=== PATIENT | male | born 1990 | race Caucasian/White ===

== ENCOUNTER 2022-06-21 05:22 | Emergency (ER) | payer OTHER ==
[2022-06-21 05:37] VITALS: BP 138/71; PULSE 74; RESP 15; TEMP 98.1
[2022-06-21] MEDS ORDERED: ONDANSETRON 4 MG/2 ML VIAL IVP STA (06:00)
[2022-06-21] MEDS ORDERED: KETOROLAC 15 MG/ML 1 ML VIAL IVP STA (06:00)
[2022-06-21] MEDS ORDERED: ORPHENADRINE 30 MG/ML 2 ML VIAL IVP STA (06:01)
--- NOTE | 2022-06-21 06:22 | ED ---
Recheck HPI - General Chief Complaint: Recheck/Abnormal Lab/Rx Stated Complaint: medication reaction Time Seen by Provider: 06/21/22 05:54 Source: EMS Mode of arrival: EMS Limitations: no limitations - History of Present Illness Initial Comments: This is a 32-year-old male who presents to the emergency department for nausea, vomiting, and lower back pain. He was started on Requip last night for restless leg syndrome, and is unsure if this is related. The pain is primarily in the right mid and lower back. He does note a problem with bulging disks in the past. However, this feels worse and it has not been a problem for him in several years. He has diffuse abdominal pain related to all of the nausea and vomiting. Also has a headache. Denies any history of kidney stones or urinary symptoms. Denies any fevers, chills, sore throat, cough, dyspnea, chest pain, palpitations, or diarrhea. - Related Data Home Medications Medication Instructions Recorded Confirmed Metoprolol Tartrate [Lopressor] 100 mg PO DAILY 05/11/20 05/11/20 clonazePAM [KlonoPIN] 0.5 mg PO HS 05/11/20 05/11/20 lisinopriL [Zestril] 20 mg PO DAILY 05/11/20 05/11/20 Allergies Allergy/AdvReac Type Severity Reaction Status Date / Time No Known Allergies Allergy Verified 06/21/22 05:35 Review of Systems ROS Statement: Those systems with pertinent positive or pertinent negative responses have been documented in the HPI. ROS Other: All systems not noted in ROS Statement are negative. Past Medical History Past Medical History: GERD/Reflux, Hypertension Additional Past Medical History / Comment(s): HAD STAGE 4 REFLUX AT AGE 16. SEVERE ANXIETY History of Any Multi-Drug Resistant Organisms: None Reported Additional Past Surgical History / Comment(s): EGD Past Anesthesia/Blood Transfusion Reactions: No Reported Reaction Past Psychological History: Anxiety Smoking Status: Never smoker Past Alcohol Use History: None Reported Past Drug Use History: None Reported - Past Family History Father Family Medical History: Deep Vein Thrombosis (DVT) Mother Family Medical History: Deep Vein Thrombosis (DVT) General Exam Limitations: no limitations Course Vital Signs 06/21/22 05:35 Temperature 98.1 F Pulse Rate 74 Respiratory 15 Rate Blood Pressure 138/71 O2 Sat by Pulse 100 Oximetry Disposition Referrals: Cheryl Cano NPC [Primary Care Provider] - 1-2 days
--- NOTE | 2022-06-21 06:22 | ED ---
Nausea/Vomiting/Diarrhea HPI - General Chief complaint: Recheck/Abnormal Lab/Rx Stated complaint: medication reaction Time Seen by Provider: 06/21/22 05:54 Source: patient, EMS, RN notes reviewed Mode of arrival: EMS Limitations: no limitations - History of Present Illness Initial comments: This is a 32-year-old male who presents to the emergency department for nausea, vomiting, and lower back pain. He was started on Requip last night for restless leg syndrome, and is unsure if this is related. The pain is primarily in the right mid and lower back. He does note a problem with bulging disks in the past. However, this feels worse and it has not been a problem for him in several years. He has diffuse abdominal pain related to all of the nausea and vomiting. Also has a headache. Denies any history of kidney stones or urinary symptoms. Prior to the Requip, he took 400 mg of gabapentin before bed, which he states worked great for the restless legs. He is unsure why this was discontinued. Denies any fevers, chills, sore throat, cough, dyspnea, chest pain, palpitations, or diarrhea. MD complaint: nausea, vomiting, abdominal pain Associated Abdominal Pain: Yes Location: diffuse - Related Data Home Medications Medication Instructions Recorded Confirmed Metoprolol Tartrate [Lopressor] 100 mg PO DAILY 05/11/20 05/11/20 clonazePAM [KlonoPIN] 0.5 mg PO HS 05/11/20 05/11/20 lisinopriL [Zestril] 20 mg PO DAILY 05/11/20 05/11/20 Previous Rx's Medication Instructions Recorded Gabapentin [Neurontin] 400 mg PO HS PRN #7 cap 06/21/22 Ondansetron Odt [Zofran Odt] 4 mg PO Q8HR PRN #15 tab 06/21/22 Allergies Allergy/AdvReac Type Severity Reaction Status Date / Time No Known Allergies Allergy Verified 06/21/22 05:35 Review of Systems ROS Statement: Those systems with pertinent positive or pertinent negative responses have been documented in the HPI. ROS Other: All systems not noted in ROS Statement are negative. Past Medical History Past Medical History: GERD/Reflux, Hypertension Additional Past Medical History / Comment(s): HAD STAGE 4 REFLUX AT AGE 16. SEVERE ANXIETY History of Any Multi-Drug Resistant Organisms: None Reported Additional Past Surgical History / Comment(s): EGD Past Anesthesia/Blood Transfusion Reactions: No Reported Reaction Past Psychological History: Anxiety Smoking Status: Never smoker Past Alcohol Use History: None Reported Past Drug Use History: None Reported - Past Family History Father Family Medical History: Deep Vein Thrombosis (DVT) Mother Family Medical History: Deep Vein Thrombosis (DVT) General Exam Limitations: no limitations General appearance: alert, in distress Head exam: Present: atraumatic, normocephalic, normal inspection Respiratory exam: Present: normal lung sounds bilaterally. Absent: respiratory distress, wheezes, rales, rhonchi, stridor Cardiovascular Exam: Present: regular rate GI/Abdominal exam: Present: soft, tenderness (Diffuse), normal bowel sounds. Absent: distended, guarding, rebound, rigid Back exam: Present: CVA tenderness (R). Absent: CVA tenderness (L) Neurological exam: Present: alert, oriented X3, CN II-XII intact Psychiatric exam: Present: normal affect, normal mood Skin exam: Present: warm, dry, intact, normal color. Absent: rash Course Vital Signs 06/21/22 05:35 Temperature 98.1 F Pulse Rate 74 Respiratory 15 Rate Blood Pressure 138/71 O2 Sat by Pulse 100 Oximetry Medical Decision Making - Medical Decision Making This is a 32-year-old male who presents to the emergency department for nausea, vomiting, and back pain. Lab work was nonactionable. Urinalysis is negative for any signs of infection. Computed tomography scan of the abdomen and pelvis obtained, revealing moderate degenerative disc disease with disc bulging of the lumbosacral area of the spine. It did not identify any signs of a ureteral or renal calculus. His symptoms were effectively managed in the emergency department, however he did require quite a few medications, including a migraine cocktail for the headache. Valium and Norflex were ineffective for the RLS and he was subsequently quickly given a dose of the gabapentin. Advised the patient that I can give him 7 tablets of the gabapentin, however because this is considered a controlled substance, I am unable to provide him with any more than this. He will need to follow up with his primary care provider to discuss continuing this as opposed to the Requip for his symptoms. Recommended he avoid the Requip in the meantime in the event it is contributing to his symptoms. Prescription for Zofran provided in addition to the gabapentin for any additional nausea and vomiting. Return precautions reviewed in depth, the patient is instructed to return to the emergency department with any new, worsening, or concerning symptoms. Patient verbalized understanding. This case was discussed in detail with the attending ED physician. Presentation, findings, and treatment plan discussed in detail as well. - Lab Data Result diagrams: 06/21/22 06:05 06/21/22 06:05 Lab Results 06/21/22 06/21/22 06/21/22 Range/Units 06:05 06:05 06:44 WBC 9.6 (3.8-10.6) k/uL RBC 4.15 L (4.30-5.90) m/uL Hgb 13.3 (13.0-17.5) gm/dL Hct 36.6 L (39.0-53.0) % MCV 88.3 (80.0-100.0) fL MCH 32.0 (25.0-35.0) pg MCHC 36.2 (31.0-37.0) g/dL RDW 12.0 (11.5-15.5) % Plt Count 347 (150-450) k/uL MPV 7.0 Neutrophils % 82 % Lymphocytes % 13 % Monocytes % 3 % Eosinophils % 1 % Basophils % 0 % Neutrophils # 7.9 H (1.3-7.7) k/uL Lymphocytes # 1.3 (1.0-4.8) k/uL Monocytes # 0.3 (0-1.0) k/uL Eosinophils # 0.1 (0-0.7) k/uL Basophils # 0.0 (0-0.2) k/uL Sodium 139 (137-145) mmol/L Potassium 4.3 (3.5-5.1) mmol/L Chloride 104 (98-107) mmol/L Carbon Dioxide 26 (22-30) mmol/L Anion Gap 9 mmol/L BUN 10 (9-20) mg/dL Creatinine 0.66 (0.66-1.25) mg/dL Est GFR (CKD-EPI)AfAm >90 (>60 ml/min/1.73 sqM) Est GFR (CKD-EPI)NonAf >90 (>60 ml/min/1.73 sqM) Glucose 117 H (74-99) mg/dL Calcium 9.5 (8.4-10.2) mg/dL Total Bilirubin 0.6 (0.2-1.3) mg/dL AST 25 (17-59) U/L ALT 26 (4-49) U/L Alkaline Phosphatase 65 (38-126) U/L Total Protein 7.1 (6.3-8.2) g/dL Albumin 4.7 (3.5-5.0) g/dL Amylase 59 (30-110) U/L Lipase 64 (23-300) U/L Urine Color Urine Appearance (Clear) Urine pH (5.0-8.0) Ur Specific [place] (1.001-1.035) Urine Protein (Negative) Urine Glucose (UA) (Negative) Urine Ketones (Negative) Urine Blood (Negative) Urine Nitrite (Negative) Urine Bilirubin (Negative) Urine Urobilinogen (<2.0) mg/dL Ur Leukocyte Esterase (Negative) Coronavirus (PCR) (Not Detectd) Influenza Type A RNA Not Detected (Not Detectd) Influenza Type B (PCR) Not Detected (Not Detectd) 06/21/22 06/21/22 Range/Units 06:44 08:57 WBC (3.8-10.6) k/uL RBC (4.30-5.90) m/uL Hgb (13.0-17.5) gm/dL Hct (39.0-53.0) % MCV (80.0-100.0) fL MCH (25.0-35.0) pg MCHC (31.0-37.0) g/dL RDW (11.5-15.5) % Plt Count (150-450) k/uL MPV Neutrophils % % Lymphocytes % % Monocytes % % Eosinophils % % Basophils % % Neutrophils # (1.3-7.7) k/uL Lymphocytes # (1.0-4.8) k/uL Monocytes # (0-1.0) k/uL Eosinophils # (0-0.7) k/uL Basophils # (0-0.2) k/uL Sodium (137-145) mmol/L Potassium (3.5-5.1) mmol/L Chloride (98-107) mmol/L Carbon Dioxide (22-30) mmol/L Anion Gap mmol/L BUN (9-20) mg/dL Creatinine (0.66-1.25) mg/dL Est GFR (CKD-EPI)AfAm (>60 ml/min/1.73 sqM) Est GFR (CKD-EPI)NonAf (>60 ml/min/1.73 sqM) Glucose (74-99) mg/dL Calcium (8.4-10.2) mg/dL Total Bilirubin (0.2-1.3) mg/dL AST (17-59) U/L ALT (4-49) U/L Alkaline Phosphatase (38-126) U/L Total Protein (6.3-8.2) g/dL Albumin (3.5-5.0) g/dL Amylase (30-110) U/L Lipase (23-300) U/L Urine Color Yellow Urine Appearance Clear (Clear) Urine pH 6.5 (5.0-8.0) Ur Specific [place] 1.014 (1.001-1.035) Urine Protein Negative (Negative) Urine Glucose (UA) Negative (Negative) Urine Ketones Negative (Negative) Urine Blood Negative (Negative) Urine Nitrite Negative (Negative) Urine Bilirubin Negative (Negative) Urine Urobilinogen <2.0 (<2.0) mg/dL Ur Leukocyte Esterase Negative (Negative) Coronavirus (PCR) Not Detected (Not Detectd) Influenza Type A RNA (Not Detectd) Influenza Type B (PCR) (Not Detectd) - Radiology Data Radiology results: report reviewed, image reviewed Disposition Clinical Impression: Nausea & vomiting Disposition: HOME SELF-CARE Instructions (If sedation given, give patient instructions): Restless Legs Syndrome (ED) Additional Instructions: Return to the emergency department with any new, worsening, or concerning symptoms. Start taking the gabapentin before bed each night. Discuss continuing this as opposed to the Requip with your primary care provider. Stop taking the Requip and see if symptoms improve. The Zofran can be taken up to every 8 hours as needed for nausea and vomiting. Follow up with your primary care provider in 1-2 days. Prescriptions: Gabapentin [Neurontin] 400 mg PO HS PRN #7 cap PRN Reason: See Comments Ondansetron Odt [Zofran Odt] 4 mg PO Q8HR PRN #15 tab PRN Reason: Nausea And Vomiting Is patient prescribed a controlled substance at d/c from ED?: Yes When asked, does pt state using other controlled substances?: Yes Referrals: Cheryl Cano NPC [Primary Care Provider] - 1-2 days
[2022-06-21 06:27] LABS: Basophils % (A) 0 %; Eosinophils # (A) 0.1 k/uL (0-0.7); Eosinophils % (A) 1 %; HCT 36.6 % (39.0-53.0); HGB 13.3 gm/dL (13.0-17.5); Lymphocytes # (A) 1.3 k/uL (1.0-4.8); Lymphocytes % (A) 13 %; MCHC 36.2 g/dL (31.0-37.0); MCV 88.3 fL (80.0-100.0); Monocytes # (A) 0.3 k/uL (0-1.0); Monocytes % (A) 3 %; Neutrophils # (A) 7.9 k/uL (1.3-7.7); Neutrophils % (A) 82 %; Platelet Count 347 k/uL (150-450); RBC 4.15 m/uL (4.30-5.90); WBC 9.6 k/uL (3.8-10.6)
[2022-06-21 06:47] LABS: ALT 26 U/L (4-49); AST 25 U/L (17-59); African American GFR (CKD) >90 (>60 ml/min/1.73 sqM); Albumin 4.7 g/dL (3.5-5.0); Alkaline Phosphatase 65 U/L (38-126); Amylase 59 U/L (30-110); Anion Gap 9 mmol/L; Blood Urea Nitrogen 10 mg/dL (9-20); Calcium 9.5 mg/dL (8.4-10.2); Carbon Dioxide 26 mmol/L (22-30); Chloride 104 mmol/L (98-107); Glucose 117 mg/dL (74-99); Lipase 64 U/L (23-300); Non-African American GFR(CKD) >90 (>60 ml/min/1.73 sqM); Potassium 4.3 mmol/L (3.5-5.1); Sodium 139 mmol/L (137-145); Total Bilirubin 0.6 mg/dL (0.2-1.3); Total Protein 7.1 g/dL (6.3-8.2)
[2022-06-21] MEDS ORDERED: METOCLOPRAMIDE 5 MG/ML 2 ML VIAL IVP STA (07:41)
[2022-06-21] MEDS ORDERED: diphenhydrAMINE 50 MG/ML 1 ML VIAL IVP STA (07:41)
[2022-06-21] MEDS ORDERED: SODIUM CHLORIDE 0.9% 500 ML 500 ML IV STA (07:41)
[2022-06-21] MEDS ORDERED: DEXAMETHASONE SOD PHOSPHATE 10 MG/ML 1 ML VIAL IV STA (07:41)
--- NOTE | 2022-06-21 07:56 | CT ---
EXAMINATION TYPE: CT abdomen pelvis wo con DATE OF EXAM: 06/21/2022 COMPARISON: None HISTORY: 32-year-old male Rt flank pain CT DLP: 591 mGycm. Automated exposure control for dose reduction was used. TECHNIQUE: Contiguous axial scanning of the abdomen and pelvis without IV contrast. Coronal and sagit onofre reconstructions performed. FINDINGS: Heart normal size without pericardial effusion. Lung bases clear without pleural effusion. Liver borderline in size at 17.3 cm. Otherwise, noncontrast appearance of the liver, gallbladder, adr enal glands, kidneys, spleen, and pancreas within normal limits. No ureteral stone, nephrolithiasis, or hydronephrosis is seen. No dilated small bowel, free fluid, free air. No mesenteric or retroperitoneal lymphadenopathy. Normal appendix. Mild stool burden. No pericolonic inflammatory change. Bladder nondistended. Prostate gland measures 4.1 cm wide. Small pelvic phleboliths. No abnormal flui d collection in the pelvis or pelvic lymphadenopathy. Bones: Transitional lumbosacral segment is noted as a sacralized L5. Moderate degenerative disc disea se above at L4-L5. Disc bulges at both L3-L4 (resulting in mild spinal canal stenosis) and L4-L5. Hyp ertrophic facet arthropathy in the lower lumbar spine. IMPRESSION: 1. No nephrolithiasis or hydronephrosis. Normal appendix. No acute inflammatory process identified o n this noncontrast study. 2. Transitional lumbosacral segment with moderate degenerative disc disease above at L4-L5. Disc bul ge at L3-L4 results in a mild spinal canal stenosis.
[2022-06-21] MEDS ORDERED: HYDROmorphone 0.5 MG/0.5 ML SYRINGE IVP STA (08:46)
[2022-06-21] MEDS ORDERED: GABAPENTIN 400 MG CAP PO STA (08:46)
[2022-06-21 09:06] LABS: Appearance,Urine Clear (Clear); Bilirubin,Urine Negative (Negative); Blood,Urine Negative (Negative); Color,Urine Yellow; Glucose,Urine (UA) Negative (Negative); Ketones,Urine Negative (Negative); Leukocyte Esterase,Urine Negative (Negative); Nitrite,Urine Negative (Negative); PH, Urine 6.5 (5.0-8.0); Protein,Urine Negative (Negative); Specific Gravity,Urine 1.014 (1.001-1.035); Urobilinogen,Urine <2.0 mg/dL (<2.0)
== END 2022-06-21 09:22 | disposition home or self-care (01) ==
LOC: EC 05:22
DX: R11.2 Nausea with vomiting, unspecified (principal); K21.9 Gastro-esophageal reflux disease without esophagitis; I10 Essential (primary) hypertension; F41.9 Anxiety disorder, unspecified; Z79.899 Other long term (current) drug therapy; Z20.822 Contact with and (suspected) exposure to COVID-19
CPT/HCPCS: 36415; 80053; 82150; 83690; 85025; 81003; 87502; 87635; 74176; 99284; 96374; 96375 ×8; J1200; J1100; J2360; J2765; J3360; J2405; J1885; J1170

== ENCOUNTER → 2022-08-14 | Outpatient (CLI) | payer OTHER ==
--- NOTE | 2022-08-14 11:20 | CT ---
EXAMINATION TYPE: CT angio chest CT DLP: 312.1 mGycm, Automated exposure control for dose reduction was used. DATE OF EXAM: 08/14/2022 11:08 AM COMPARISON: CT abdomen and pelvis 06/21/2022. CLINICAL INDICATION:Male, 32 years old with history of I26.99 PE I34.0 Mitral valve insufficiency; Fo llow up for PE. TECHNIQUE/CONTRAST: CTA scan of the thorax is performed with IV Contrast, patient injected with 72ml mL of Isovue 370, pu lmonary embolism protocol. MIP images are created and reviewed. FINDINGS: Pulmonary Artery: There is no evidence for a filling defect within the pulmonary vasculature to sugge st acute pulmonary embolism. The pulmonary artery is of normal size. Reflux of contrast into the IVC and hepatic veins. Lungs/Pleura: No evidence of focal consolidation, pleural effusion or pneumothorax. No suspicious pul monary nodules or masses. Airway: Large airways are patent. Heart: Heart is within normal limits for overall size.. No pericardial effusion. Vasculature: No evidence of aortic aneurysm. Mediastinum: No gross evidence of adenopathy. Musculoskeletal: No acute osseous abnormalities Soft Tissues: Unremarkable. Lower neck: No significant findings. Upper Abdomen: No significant findings.. IMPRESSION: No evidence of pulmonary embolism or acute thoracic process.
== END | disposition home or self-care (01) ==
LOC: RADCTMAIN 10:40
PROVIDERS: ATTEND Family Medicine
DX: I07.1 Rheumatic tricuspid insufficiency (principal); I34.0 Nonrheumatic mitral (valve) insufficiency
CPT/HCPCS: 71275; Q9967

== ENCOUNTER 2024-11-20 10:40 | Emergency (ER) | payer OTHER ==
[2024-11-20 10:48] VITALS: TEMP 98
--- NOTE | 2024-11-20 11:30 | ED ---
GI Bleed HPI - General Chief complaint: GI Bleed Stated complaint: abd pain, vomiting Time Seen by Provider: 11/20/24 11:27 Source: patient, EMS, RN notes reviewed Mode of arrival: EMS Limitations: no limitations - History of Present Illness Initial comments: 34-year-old male presenting for nausea/vomiting/diarrhea x 2 days with associated epigastric pain. States symptoms started suddenly around 4 PM on Saturday and have been persistent since. States the vomit appears to be coffee-ground emesis and smells like feces. Reports stools are black and waller. Reports symptoms occur approximately every 20 minutes. States he has a history of a perforated ulcer due to GERD. Denies any alcohol use. No other health conditions. He is unable to tolerate orals. - Related Data Home Medications Medication Instructions Recorded Confirmed lisinopriL [Zestril] 20 mg PO DAILY 05/11/20 11/20/24 Buprenorphine/Naloxone 8Mg/2Mg 0.5 film SL BID 11/20/24 11/20/24 [Suboxone 8-2Mg Film] Metoprolol Succinate (ER) [Toprol 100 mg PO DAILY 11/20/24 11/20/24 Xl] Previous Rx's Medication Instructions Recorded Ondansetron Odt [Zofran Odt] 4 mg PO Q8HR PRN #10 tab 11/20/24 Allergies Allergy/AdvReac Type Severity Reaction Status Date / Time No Known Allergies Allergy Verified 11/20/24 11:12 Review of Systems ROS Statement: Those systems with pertinent positive or pertinent negative responses have been documented in the HPI. ROS Other: All systems not noted in ROS Statement are negative. Past Medical History Past Medical History: GERD/Reflux, Hypertension Additional Past Medical History / Comment(s): HAD STAGE 4 REFLUX AT AGE 16. SEVERE ANXIETY History of Any Multi-Drug Resistant Organisms: None Reported Additional Past Surgical History / Comment(s): EGD Past Anesthesia/Blood Transfusion Reactions: No Reported Reaction Past Psychological History: Anxiety Smoking Status: Vaper Past Alcohol Use History: None Reported Past Drug Use History: None Reported - Past Family History Father Family Medical History: Deep Vein Thrombosis (DVT) Mother Family Medical History: Deep Vein Thrombosis (DVT) General Exam Limitations: no limitations General appearance: alert, in no apparent distress Head exam: Present: atraumatic, normocephalic, normal inspection Eye exam: Present: normal appearance, PERRL, EOMI. Absent: scleral icterus, conjunctival injection, periorbital swelling ENT exam: Present: normal exam, mucous membranes moist Respiratory exam: Present: normal lung sounds bilaterally. Absent: respiratory distress, wheezes, rales, rhonchi, stridor Cardiovascular Exam: Present: regular rate, normal rhythm, normal heart sounds. Absent: systolic murmur, diastolic murmur, rubs, gallop, clicks GI/Abdominal exam: Present: soft, normal bowel sounds. Absent: distended, tenderness, guarding, rebound, rigid Rectal exam: Present: normal inspection (No gross black or bloody stool during examination. Exam chaperoned by [facility]). Absent: hemorrhoids Neurological exam: Present: alert, oriented X3 Psychiatric exam: Present: normal affect, normal mood Skin exam: Present: warm, dry, intact, normal color. Absent: rash Course Vital Signs 11/20/24 11/20/24 11/20/24 10:43 13:00 13:58 Temperature 98.0 F Pulse Rate 84 82 87 Respiratory 20 16 18 Rate Blood Pressure 139/89 124/79 128/80 O2 Sat by Pulse 100 98 98 Oximetry Medical Decision Making - Medical Decision Making Was pt. sent in by a medical professional or institution (, PA, RN NEUROSURGICAL, urgent care, hospital, or [facility]...) When possible be specific @ -No Did you speak to anyone other than the patient for history (EMS, parent, family, police, friend...)? What history was obtained from this source @ -No Did you review nursing and triage notes (agree or disagree)? Why? @ -I reviewed and agree with nursing and triage notes Were old charts reviewed (outside hosp., previous admission, EMS record, old EKG, old radiological studies, urgent care reports/EKG's, [facility] records)? Report findings @ -No old charts were reviewed Differential Diagnosis (chest pain, altered mental status, abdominal pain women, abdominal pain men, vaginal bleeding, weakness, fever, dyspnea, syncope, headache, dizziness, GI bleed, back pain, seizure, CVA, palpatations, mental health, musculoskeletal)? @ -Differential GI Bleed: Esophageal varices, aortoenteric fistula, Divine-Menard, gastritis, peptic ulcer disease, diverticulosis, inflammatory bowel disease, hemorrhoids, fissure, colitis, malignancy, Meckel's diverticulum, this is not meant to be an all- inclusive list. EKG interpreted by me (3pts min.). @ -As above X-rays interpreted by me (1pt min.). @ -None done CT interpreted by me (1pt min.). @ -CT abdomen pelvis reveals fluid in the colon is abnormal finding and could reflect products of diarrhea or mild uncomplicated colitis, no acute findings U/S interpreted by me (1pt. min.). @ -None done What testing was considered but not performed or refused? (CT, X-rays, U/S, labs)? Why? @ -None What meds were considered but not given or refused? Why? @ -None Did you discuss the management of the patient with other professionals ( professionals i.e. , PA, RN NEUROSURGICAL, lab, RT, psych nurse, social service technician, replanter, teacher, biosecurity officer, case making machine operator)? Give summary @ -No Was smoking cessation discussed for >3mins.? @ -No Was critical care preformed (if so, how long)? @ -No Were there social determinants of health that impacted care today? How? (Homelessness, low income, unemployed, alcoholism, drug addiction, transportation, low edu. Level, literacy, decrease access to med. care, group home, rehab)? @ -No Was there de-escalation of care discussed even if they declined (Discuss DNR or withdrawal of care, Hospice)? DNR status @ -No What co-morbidities impacted this encounter? (DM, HTN, Smoking, COPD, CAD, Cancer, CVA, ARF, Chemo, Hep., AIDS, mental health diagnosis, sleep apnea, morbid obesity)? @ -None Was patient admitted / discharged? Hospital course, mention meds given and route, prescriptions, significant lab abnormalities, going to OR and other pertinent info. @ - discharge. 34-year-old male presenting for GI bleed. Reports nausea/vomiting/diarrhea with epigastric pain for 2 days. Reports vomit is coffee-ground and stools are black/waller. History of perforated gastric ulceration due to chronic GERD. Vital signs within acceptable limits. Abdomen soft and nonsurgical. Patient is provided with IV fluids and dose of Protonix. Patient received Zofran and analgesics via EMS. There is no gross blood present during rectal examination. Stool occult positive. Lab work largely unremarkable. White blood cell count normal at 10. Hemoglobin stable at 13.6. Urinalysis reveals 1+ protein and trace blood. CT abdomen with contrast reveals fluid in the colon abnormal finding and could represent a product of diarrhea or mild uncomplicated colitis, no acute finding. Results were discussed with patient. I recommend patient is admitted to observation for serial hemoglobin monitoring as there is suspicion for upper GI bleed and patient has history of perforated ulceration. After discussing my concerns with patient and family, patient decides that he prefers to be discharged with GI follow-up and return precautions. Strict return precautions discussed with patient in detail. Advised to continue omeprazole at home. Case was discussed with my ED attending Dr. Guy. Undiagnosed new problem with uncertain prognosis? @ -No Drug Therapy requiring intensive monitoring for toxicity (Heparin, Nitro, Insuli n, Cardizem)? @ -No Were any procedures done? @ -No Diagnosis/symptom? @ -Upper GI bleed Acute, or Chronic, or Acute on Chronic? @ -Acute Uncomplicated (without systemic symptoms) or Complicated (systemic symptoms)? @ -Complicated Side effects of treatment? @ -No Exacerbation, Progression, or Severe Exacerbation? @ -No Poses a threat to life or bodily function? How? (Chest pain, USA, ND, pneumonia, PE, COPD, DKA, ARF, appy, cholecystitis, CVA, Diverticulitis, Homicidal, Suicidal, threat to staff... and all critical care pts) @ -Not at this time - Lab Data Result diagrams: 11/20/24 11:35 11/20/24 11:35 Lab Results 11/20/24 11/20/24 11/20/24 Range/Units 11:35 11:35 11:35 WBC 10.0 (3.8-10.6) k/uL RBC 4.42 (4.30-5.90) m/uL Hgb 13.6 (13.0-17.5) gm/dL Hct 38.6 L (39.0-53.0) % MCV 87.5 (80.0-100.0) fL MCH 30.9 (25.0-35.0) pg MCHC 35.3 (31.0-37.0) g/dL RDW 12.4 (11.5-15.5) % Plt Count 235 (150-450) k/uL MPV 7.3 Neutrophils % 86 % Lymphocytes % 8 % Monocytes % 5 % Eosinophils % 0 % Basophils % 0 % Neutrophils # 8.6 H (1.3-7.7) k/uL Lymphocytes # 0.8 L (1.0-4.8) k/uL Monocytes # 0.5 (0-1.0) k/uL Eosinophils # 0.0 (0-0.7) k/uL Basophils # 0.0 (0-0.2) k/uL PT 12.0 (10.0-12.5) sec INR 1.1 (<1.2) APTT 24.0 (22.0-30.0) sec Sodium (137-145) mmol/L Potassium (3.5-5.1) mmol/L Chloride (98-107) mmol/L Carbon Dioxide (22-30) mmol/L Anion Gap mmol/L BUN (9-20) mg/dL Creatinine (0.66-1.25) mg/dL Est GFR (CKD-EPI)AfAm (>60 ml/min/1.73 sqM) Est GFR (CKD-EPI)NonAf (>60 ml/min/1.73 sqM) Glucose (74-99) mg/dL Plasma Lactic Acid Sadiq (0.7-2.0) mmol/L Calcium (8.4-10.2) mg/dL Total Bilirubin (0.2-1.3) mg/dL AST (17-59) U/L ALT (4-49) U/L Alkaline Phosphatase (38-126) U/L Total Protein (6.3-8.2) g/dL Albumin (3.5-5.0) g/dL Lipase (23-300) U/L Urine Color Yellow Urine Appearance Clear (Clear) Urine pH 6.5 (5.0-8.0) Ur Specific [place] 1.032 (1.001-1.035) Urine Protein 1+ H (Negative) Urine Glucose (UA) Negative (Negative) Urine Ketones Negative (Negative) Urine Blood Trace H (Negative) Urine Nitrite Negative (Negative) Urine Bilirubin Negative (Negative) Urine Urobilinogen <2.0 (<2.0) mg/dL Ur Leukocyte Esterase Negative (Negative) Urine RBC 10 H (0-5) /hpf Urine WBC 2 (0-5) /hpf Ur Squamous Epith Cells 1 (0-4) /hpf Urine Mucus Rare H (None) /hpf Stool Occult Blood (Negative) 11/20/24 11/20/24 11/20/24 Range/Units 11:35 11:35 11:58 WBC (3.8-10.6) k/uL RBC (4.30-5.90) m/uL Hgb (13.0-17.5) gm/dL Hct (39.0-53.0) % MCV (80.0-100.0) fL MCH (25.0-35.0) pg MCHC (31.0-37.0) g/dL RDW (11.5-15.5) % Plt Count (150-450) k/uL MPV Neutrophils % % Lymphocytes % % Monocytes % % Eosinophils % % Basophils % % Neutrophils # (1.3-7.7) k/uL Lymphocytes # (1.0-4.8) k/uL Monocytes # (0-1.0) k/uL Eosinophils # (0-0.7) k/uL Basophils # (0-0.2) k/uL PT (10.0-12.5) sec INR (<1.2) APTT (22.0-30.0) sec Sodium 133 L (137-145) mmol/L Potassium 3.7 (3.5-5.1) mmol/L Chloride 100 (98-107) mmol/L Carbon Dioxide 22 (22-30) mmol/L Anion Gap 11 mmol/L BUN 20 (9-20) mg/dL Creatinine 0.80 (0.66-1.25) mg/dL Est GFR (CKD-EPI)AfAm >90 (>60 ml/min/1.73 sqM) Est GFR (CKD-EPI)NonAf >90 (>60 ml/min/1.73 sqM) Glucose 123 H (74-99) mg/dL Plasma Lactic Acid Sadiq 1.4 (0.7-2.0) mmol/L Calcium 8.4 (8.4-10.2) mg/dL Total Bilirubin 1.5 H (0.2-1.3) mg/dL AST 25 (17-59) U/L ALT 18 (4-49) U/L Alkaline Phosphatase 52 (38-126) U/L Total Protein 6.5 (6.3-8.2) g/dL Albumin 3.9 (3.5-5.0) g/dL Lipase 22 L (23-300) U/L Urine Color Urine Appearance (Clear) Urine pH (5.0-8.0) Ur Specific [place] (1.001-1.035) Urine Protein (Negative) Urine Glucose (UA) (Negative) Urine Ketones (Negative) Urine Blood (Negative) Urine Nitrite (Negative) Urine Bilirubin (Negative) Urine Urobilinogen (<2.0) mg/dL Ur Leukocyte Esterase (Negative) Urine RBC (0-5) /hpf Urine WBC (0-5) /hpf Ur Squamous Epith Cells (0-4) /hpf Urine Mucus (None) /hpf Stool Occult Blood Positive (Negative) - EKG Data -: EKG Interpreted by Me EKG Comments: Normal sinus rhythm with no acute ST changes. Ventricular rate 79 bpm, GA interval 164, QRS duration 102, QT/QTc 408/443 Disposition Clinical Impression: Upper GI bleed, Colitis Disposition: HOME SELF-CARE Instructions (If sedation given, give patient instructions): Gastrointestinal Bleeding (ED) Additional Instructions: Follow-up with GI as discussed. Please return to the Emergency Department if symptoms worsen or any other concerns. Prescriptions: Ondansetron Odt [Zofran Odt] 4 mg PO Q8HR PRN #10 tab PRN Reason: Nausea Is patient prescribed a controlled substance at d/c from ED?: No Referrals: Radha Smith DO [Primary Care Provider] - 1-2 days Kylah Hdz MD [STAFF PHYSICIAN] - 1-2 days Time of Disposition: 13:48
[2024-11-20] MEDS: SODIUM CHLORIDE 0.9% 1,000 ML IV STA (11:41)
[2024-11-20] MEDS: PANTOPRAZOLE 40 MG/10 ML VIAL IVP STA (11:42)
[2024-11-20 11:49] LABS: Appearance,Urine Clear (Clear); Bilirubin,Urine Negative (Negative); Blood,Urine Trace (Negative); Color,Urine Yellow; Glucose,Urine (UA) Negative (Negative); Ketones,Urine Negative (Negative); Leukocyte Esterase,Urine Negative (Negative); Mucus,Urine Rare /hpf; Nitrite,Urine Negative (Negative); PH, Urine 6.5 (5.0-8.0); Protein,Urine 1+ (Negative); RBC,Urine 10 /hpf (0-5); Specific Gravity,Urine 1.032 (1.001-1.035); Squamous Epithelial Cell,Urine 1 /hpf (0-4); Urobilinogen,Urine <2.0 mg/dL (<2.0); WBC,Urine 2 /hpf (0-5)
[2024-11-20 11:53] LABS: ALT 18 U/L (4-49); AST 25 U/L (17-59); African American GFR (CKD) >90 (>60 ml/min/1.73 sqM); Albumin 3.9 g/dL (3.5-5.0); Alkaline Phosphatase 52 U/L (38-126); Anion Gap 11 mmol/L; Blood Urea Nitrogen 20 mg/dL (9-20); Calcium 8.4 mg/dL (8.4-10.2); Carbon Dioxide 22 mmol/L (22-30); Chloride 100 mmol/L (98-107); Glucose 123 mg/dL (74-99); Lipase 22 U/L (23-300); Non-African American GFR(CKD) >90 (>60 ml/min/1.73 sqM); Potassium 3.7 mmol/L (3.5-5.1); Sodium 133 mmol/L (137-145); Total Bilirubin 1.5 mg/dL (0.2-1.3); Total Protein 6.5 g/dL (6.3-8.2)
[2024-11-20 12:19] LABS: INR 1.1 (<1.2)
[2024-11-20 12:25] LABS: Basophils % (A) 0 %; Eosinophils % (A) 0 %; HCT 38.6 % (39.0-53.0); HGB 13.6 gm/dL (13.0-17.5); Lymphocytes # (A) 0.8 k/uL (1.0-4.8); Lymphocytes % (A) 8 %; MCH 30.9 pg (25.0-35.0); MCHC 35.3 g/dL (31.0-37.0); MCV 87.5 fL (80.0-100.0); Mean Platelet Volume 7.3; Monocytes # (A) 0.5 k/uL (0-1.0); Monocytes % (A) 5 %; Neutrophils # (A) 8.6 k/uL (1.3-7.7); Neutrophils % (A) 86 %; Platelet Count 235 k/uL (150-450); RBC 4.42 m/uL (4.30-5.90); RDW 12.4 % (11.5-15.5)
--- NOTE | 2024-11-20 12:27 | CT ---
EXAMINATION TYPE: CT abdomen pelvis w con DATE OF EXAM: 11/20/2024 COMPARISON: CT abdomen and pelvis June 21, 2022 CLINICAL INDICATION: Male, 34 years old with history of Abdominal pain, GI bleed, abd pain, TECHNIQUE: CT scan of the abdomen and pelvis is performed with IV Contrast, patient injected with 100 mL of Isov ue 300., (none if empty) Oral contrast used: without Oral Contrast (none if empty) CT DLP: 1267.4 mGycm, Automated exposure control for dose reduction was used. FINDINGS: LUNG BASES: No significant abnormality is appreciated. LIVER/GB: Liver heterogeneously hypodense suggesting possible diffuse fatty infiltration. PANCREAS: No significant abnormality is seen. SPLEEN: No significant abnormality is seen. ADRENALS: No significant abnormality is seen. KIDNEYS: No significant abnormality is seen. BOWEL: Fluid throughout the colon is present which is abnormal finding. No abnormal small or large dinorah wel dilatation is seen. PROSTATE/SEMINAL VESICLES: No gross abnormality seen. LYMPH NODES: No greater than 1cm abdominal or pelvic lymph nodes are appreciated. OSSEOUS STRUCTURES: Scoliotic curvature in the lumbar spine is more prominent versus prior. OTHER: No significant additional abnormality is seen. IMPRESSION: Fluid in the colon is abnormal finding and could reflect product of diarrhea or a mild un complicated colitis. Correlate clinically. Otherwise no acute finding is present. The exam was not pr otocoled for acute GI bleed making evaluation for this suboptimal. [facility], , 11/20/2024 12:24 PM
[2024-11-20 14:03] VITALS: BP 128/80; PULSE 87; RESP 18
== END 2024-11-20 13:59 | disposition home or self-care (01) ==
LOC: EC 10:40
DX: K52.9 Noninfective gastroenteritis and colitis, unspecified (principal); K92.2 Gastrointestinal hemorrhage, unspecified; F17.290 Nicotine dependence, other tobacco product, uncomplicated
CPT/HCPCS: 36415; 93005; 80053; 83605; 83690; 85025; 85610; 85730; 82272; 81001; 74177; 99285; 96374; 96361; Q9967; J2470